=== PATIENT | male | born 1955 | race Caucasian/White ===

== ENCOUNTER 2022-04-27 10:22 | Emergency (ER) | payer BC, MEDICARE ==
[~2022-04-27] VITALS: Ht 170.2 cm; Wt 76.7 kg
[2022-04-27] MEDS ORDERED: DEXAMETHASONE SOD PHOSPHATE 10 MG/ML VIAL IV ONE (11:30)
[2022-04-27] MEDS ORDERED: ACETAMINOPHEN ES 500 MG TABLET PO ONE (11:30)
[2022-04-27] MEDS ORDERED: IV LR 1000 ML 1,000 ML IV ONE (11:30)
[2022-04-27] MEDS ORDERED: ALBUTEROL FS 2.5 MG/3 ML VIAL.NEB NEB ONE (11:30)
[2022-04-27 11:38] LABS: BASOPHILS % (AUTO) 0.2 % (0.0-2.0); EOSINOPHILS % (AUTO) 0.1 % (0.0-6.0); HEMATOCRIT 47 % (39-51); HEMOGLOBIN 15.7 g/dL (13.5-17.5); LYMPHOCYTES # (AUTO) 0.7 K/uL (0.8-4.8); LYMPHOCYTES % (AUTO) 6.6 % (20.0-44.0); MEAN CORPUSCULAR HGB CONC 34 g/dl (31.0-36.0); MEAN CORPUSCULAR VOLUME 92 fL (80-96); MONOCYTES % (AUTO) 9.7 % (2.0-12.0); NEUTROPHILS # (AUTO) 8.6 K/uL (1.8-8.9); NEUTROPHILS % (AUTO) 83.4 % (43.0-81.0); PLATELET COUNT (AUTO) 180 K/uL (150-450); RED BLOOD CELL COUNT(AUTO) 5.09 MIL/uL (4.5-6.0); WHITE BLOOD COUNT (AUTO) 10.3 K/uL (4.3-11.0)
[2022-04-27] MEDS ORDERED: DEXAMETHASONE SOD PHOSPHATE 10 MG/ML VIAL ONE (11:40)
[2022-04-27] MEDS ORDERED: ACETAMINOPHEN ES 500 MG TABLET ONE (11:55)
[2022-04-27] MEDS ORDERED: ALBUTEROL FS 2.5 MG/3 ML VIAL.NEB ONE (12:00)
--- NOTE | 2022-04-27 12:03 | NUR ---
ARACELI () AVAILABLE TO PICK HIM UP WHEN READ [phone]
[2022-04-27 12:08] LABS: CALCIUM, SERUM 8.9 mg/dL (8.5-10.1); CARBON DIOXIDE 31 mmol/L (21-32); CHLORIDE 100 mmol/L (98-107); CREATININE 1.4 mg/dL (0.6-1.3); GLUCOSE 127 mg/dL (74-106); POTASSIUM 4.2 mmol/L (3.5-5.1); SODIUM SERUM 140 mmol/L (136-145); UREA NITROGEN, BLOOD 13 mg/dL (7-18)
--- NOTE | 2022-04-27 12:10 | NUR ---
COVID SWAB COLLECTED AND SENT TO LAB
--- NOTE | 2022-04-27 12:15 | NUR ---
RT AT BEDSIDE FOR BREATHING TX
[2022-04-27 12:24] LABS: ALANINE AMINOTRANSFERASE 105 U/L (12-78); ALBUMIN 3.8 g/dL (3.4-5.0); ALKALINE PHOSPHATASE 99 U/L (46-116); ASPARTATE AMINOTRANSFERASE 70 U/L (15-37); BILIRUBIN,DIRECT 0.1 mg/dL (0.0-0.2); BILIRUBIN,TOTAL 0.4 mg/dL (0.2-1.0)
--- NOTE | 2022-04-27 13:21 | NUR ---
covid positive. dr thomas made aware.
[2022-04-27] MEDS ORDERED: ACET-2605 PO (14:00)
--- NOTE | 2022-04-27 14:31 | NUR ---
IV removed. Catheter intact and site benign. Pressure and 4x4 applied to site. No bleeding noted.
[2022-04-27 14:33] VITALS: BP 139/95
--- NOTE | 2022-04-27 14:33 | NUR ---
Patient discharged to home in stable condition. Written and verbal after care instructions given. Patient verbalizes understanding of instruction.
== END 2022-04-27 14:33 | disposition home or self-care (01) ==
LOC: ER 10:24
DX: U07.1 COVID-19 (principal); J02.9 Acute pharyngitis, unspecified; R00.0 Tachycardia, unspecified; E78.5 Hyperlipidemia, unspecified; I10 Essential (primary) hypertension; Z88.6 Allergy status to analgesic agent
CPT/HCPCS: 99285; 96374; 71045; 96361; 87426; 93005; 70360; 84145; 85025; 80048; 87040 ×2; 83605; 80076; 36415; 84484; 85730; J1100; J7120 ×3; C9803